=== PATIENT | female | born 1955 | race Two or more races ===

== ENCOUNTER → 2023-05-29 | Outpatient (CLI) | payer OTHER ==
[2023-05-29 11:05] LABS: Alanine Aminotransferase 22 U/L (7-40); Alkaline Phosphatase 85 U/L (46-116); Aspartate Aminotransferase 18 U/L (13-40); BUN/Creatinine Ratio 28.8 (10.0-20.0); Blood Urea Nitrogen 17 mg/dL (9-23); Calcium 9.3 mg/dL (8.5-10.1); Chloride 107 mmol/L (98-107); Glucose 95 mg/dL (74-106); LDL Cholesterol 87 mg/dL (< 100); Potassium 3.8 mmol/L (3.5-5.1); Sodium 140 mmol/L (136-145); Triglycerides 81 mg/dL (< 150)
[2023-05-29 11:06] LABS: Bilirubin, Total 0.6 mg/dL (0.2-1.0); Cholesterol 136 mg/dL (< 200); HDL Cholesterol 37 mg/dL (40-59); Total Protein 6.5 g/dL (5.7-8.2)
[2023-05-29 12:13] LABS: Anion Gap 8 (5-15); Carbon Dioxide 25 mmol/L (20-30)
== END | disposition home or self-care (01) ==
LOC: LAB 09:19
PROVIDERS: ATTEND Family Medicine
DX: E78.5 Hyperlipidemia, unspecified (principal); E78.2 Mixed hyperlipidemia; E66.3 Overweight; R74.01 Elevation of levels of liver transaminase levels; E87.0 Hyperosmolality and hypernatremia
CPT/HCPCS: 36415; 80053; 80061

== ENCOUNTER → 2024-01-07 | Outpatient (CLI) | payer OTHER ==
[2024-01-07 10:37] LABS: Urine Bacteria None Seen /hpf (None Seen)
[2024-01-07 10:44] LABS: Basophils # (auto) 0 10 ^3/uL (0-0.2); Basophils % (auto) 0.7 % (0.0-2.0); Eosinophils # (auto) 0.2 10 ^3/uL (0-0.8); Eosinophils % (auto) 3.5 % (0.0-7.0); Hematocrit 40.8 % (36.0-46.0); Hemoglobin 13.6 g/dL (12.2-16.2); Lymphocytes # (auto) 2.2 10 ^3/uL (0.4-5.4); Lymphocytes % (auto) 31.7 % (10.0-50.0); Mean Corpuscular Hemoglobin 29.8 pg (28.0-32.0); Mean Corpuscular Hgb Conc. 33.4 g/dL (32.0-36.0); Mean Corpuscular Volume 89.2 fL (80.0-100.0); Monocytes # (auto) 0.6 10 ^3/uL (0-1.3); Monocytes % (auto) 8.2 % (0.0-12.0); Neutrophils # (auto) 3.8 10 ^3/uL (1.6-8.6); Neutrophils % (auto) 55.9 % (37.0-80.0); Red Blood Cells 4.57 10^6/uL (4.0-5.20); Red Cell Distribution Width 13.9 % (11.8-14.3); White Blood Cell 6.8 10^3/uL (4.4-10.8)
[2024-01-07 11:28] LABS: Urine Blood Negative /uL (Negative); Urine Clarity Clear (Clear); Urine Color Yellow (Yellow); Urine Mucus FEW (None Seen); Urine Protein, UAD TRACE (Negative); Urine Urobilinogen Normal (Negative); Urine WBC 2 /hpf (0 - 5); Urine pH 5.5 (5.0-9.0)
[2024-01-07 12:09] LABS: Alanine Aminotransferase 21 U/L (7-40); Alkaline Phosphatase 73 U/L (46-116); Anion Gap 9 (5-15); Aspartate Aminotransferase 18 U/L (13-40); BUN/Creatinine Ratio 31.1 (10.0-20.0); Blood Urea Nitrogen 19 mg/dL (9-23); Calcium 9.7 mg/dL (8.7-10.4); Carbon Dioxide 24 mmol/L (20-30); Chloride 109 mmol/L (98-107); Cholesterol 123 mg/dL (< 200); Glucose 102 mg/dL (74-106); LDL Cholesterol 69 mg/dL (< 100); Potassium 3.5 mmol/L (3.5-5.1); Sodium 142 mmol/L (136-145); Triglycerides 163 mg/dL (< 150)
[2024-01-07 12:10] LABS: Bilirubin, Total 0.7 mg/dL (0.2-1.0); HDL Cholesterol 33 mg/dL (40-59); Total Protein 6.4 g/dL (5.7-8.2)
[2024-01-07 12:22] LABS: Uric Acid 5.1 mg/dL (3.1-7.8)
[2024-01-08 08:07] LABS: Rheumatoid Arthritis Factor 10.6 IU/mL (<14.0)
[2024-01-08 09:07] LABS: Anti-Nuclear Antibody Direct Negative (Negative)
== END | disposition home or self-care (01) ==
LOC: LAB 10:26
PROVIDERS: ATTEND Family Medicine
DX: I10 Essential (primary) hypertension (principal); M15.9 Polyosteoarthritis, unspecified; G89.29 Other chronic pain; E78.5 Hyperlipidemia, unspecified; R73.09 Other abnormal glucose; E78.2 Mixed hyperlipidemia
CPT/HCPCS: 36415; 80053; 80061; 81001; 83036; 84443; 84550; 85025; 86038; 86431

== ENCOUNTER → 2024-04-13 | Outpatient (CLI) | payer OTHER | END | disposition home or self-care (01) | LOC: LAB 09:16 | PROVIDERS: ATTEND Family Medicine | DX: Z12.11 Encounter for screening for malignant neoplasm of colon (principal) | CPT/HCPCS: 82270 ==

== ENCOUNTER → 2024-04-28 | Outpatient (CLI) | payer OTHER ==
[2024-04-28 10:47] LABS: Basophils # (auto) 0.1 10 ^3/uL (0-0.2); Basophils % (auto) 0.7 % (0.0-2.0); Eosinophils # (auto) 0.3 10 ^3/uL (0-0.8); Eosinophils % (auto) 3.7 % (0.0-7.0); Hematocrit 41.2 % (36.0-46.0); Hemoglobin 13.9 g/dL (12.2-16.2); Lymphocytes # (auto) 2.6 10 ^3/uL (0.4-5.4); Lymphocytes % (auto) 30.1 % (10.0-50.0); Mean Corpuscular Hemoglobin 30.2 pg (28.0-32.0); Mean Corpuscular Hgb Conc. 33.8 g/dL (32.0-36.0); Mean Corpuscular Volume 89.4 fL (80.0-100.0); Monocytes # (auto) 0.6 10 ^3/uL (0-1.3); Monocytes % (auto) 7.5 % (0.0-12.0); Neutrophils # (auto) 4.9 10 ^3/uL (1.6-8.6); Nucleated Red Blood Cells % 0.1 %; Platelet Count (auto) 243 10^3/uL (140-450); Red Cell Distribution Width 13.2 % (11.8-14.3); White Blood Cell 8.5 10^3/uL (4.4-10.8)
[2024-04-28 11:00] LABS: Urine Bacteria FEW /hpf (None Seen); Urine Blood Negative /uL (Negative); Urine Clarity Clear (Clear); Urine Color Yellow (Yellow); Urine Mucus FEW (None Seen); Urine Protein, UAD Negative (Negative); Urine Specific Gravity 1.023 (1.001-1.035); Urine Urobilinogen Normal (Negative); Urine WBC 1 /hpf (0 - 5); Urine pH 5.5 (5.0-9.0)
[2024-04-28 11:17] LABS: Alanine Aminotransferase 23 U/L (7-40); Alkaline Phosphatase 77 U/L (46-116); Anion Gap 4 (5-15); Aspartate Aminotransferase 21 U/L (13-40); BUN/Creatinine Ratio 27.1 (10.0-20.0); Bilirubin, Total 1.1 mg/dL (0.2-1.0); Blood Urea Nitrogen 19 mg/dL (9-23); Calcium 9.8 mg/dL (8.7-10.4); Carbon Dioxide 31 mmol/L (20-31); Chloride 108 mmol/L (98-107); Cholesterol 136 mg/dL (< 200); Glucose 105 mg/dL (74-106); HDL Cholesterol 36 mg/dL (40-59); LDL Cholesterol 80 mg/dL (< 100); Potassium 4.2 mmol/L (3.5-5.1); Sodium 143 mmol/L (136-145); Total Protein 6.7 g/dL (5.7-8.2); Triglycerides 117 mg/dL (< 150)
== END | disposition home or self-care (01) ==
LOC: LAB 10:25
PROVIDERS: ATTEND Nurse Practitioner Family
DX: Z00.01 Encounter for general adult medical examination with abnormal findings (principal); Z11.3 Encounter for screening for infections with a predominantly sexual mode of transmission; Z13.89 Encounter for screening for other disorder
CPT/HCPCS: 36415; 80053; 80061; 81001; 83036; 84443; 85025